=== PATIENT | female | born 1980 | race Caucasian/White ===

== ENCOUNTER 2019-08-21 12:52 | Emergency (ER) | payer BC ==
[~2019-08-21] VITALS: Ht 172.7 cm; Wt 133.4 kg
[~2019-08-21 12:52] MED LIST: IBUPROFEN 800800 MG PO; NORCO 5-325 TA1 EACH PO
[2019-08-21] MEDS ORDERED: BUSPAR30 MG PO (13:10)
[2019-08-21] MEDS ORDERED: EFFEXOR XR150 MG PO (13:10)
[2019-08-21] MEDS ORDERED: DESYREL150 MG PO (13:11)
[2019-08-21] MEDS ORDERED: COZAAR 25 MG TA25 M2 PO (13:12)
[2019-08-21] MEDS ORDERED: TESTOSTERO30 MG/1.5 PO (13:12)
[2019-08-21] MEDS ORDERED: TYLENOL WITH CO1 TA1 PO (14:09)
[2019-08-21] MEDS ORDERED: MOBIC7.5 MG PO (14:09)
[2019-08-21 14:15] VITALS: BP 138/92
--- NOTE | 2019-08-22 14:21 | EKG ---
[place] [address] ELECTROCARDIOGRAM REPORT Name: SANDRA ADRIAN Room: [facility]#: [id number] Admission: 08/21/19 Attend Phys: Discharge: 08/21/19 Date of : 82 Date of Service: 08/21/19 1331 Report #: [id number] THIS REPORT FOR: //name// [facility] ED Test Date: 2019-08-21 Test Time: 13:31:17 Pat Name: SANDRA ADRIAN Department: Room: Gender: [employer]: [facility] : 1980 Requested By: Ivan Silvestre Order Number: [id number] MD: Julio Cesar Lakhani Measurements Intervals [place] Rate: 56 P: 24 CT: 168 QRS: -21 QRSD: 108 T: 0 QT: 427 QTc: 413 Interpretive Statements Sinus rhythm Abnormal R-wave progression, early transition Inferior infarct, old No previous ECG available for comparison Electronically Signed On 08-22-2019 14:19:31 CDT by Julio Cesar Lakhani [email or web address] <ELECTRONICALLY SIGNED> By: Julio Cesar Lakhani MD, [facility] 08/22/19 1419 133 133 Julio Cesar Lakhani MD, FAC /EPI
== END 2019-08-21 14:26 | disposition home or self-care (01) ==
LOC: M.ERS 12:52
DX: M25.522 Pain in left elbow (principal); I10 Essential (primary) hypertension; J45.909 Unspecified asthma, uncomplicated; F41.9 Anxiety disorder, unspecified; F32.9 Major depressive disorder, single episode, unspecified; Z90.710 Acquired absence of both cervix and uterus; Z88.4 Allergy status to anesthetic agent